=== PATIENT | male | born 1945 | race Caucasian/White ===

== ENCOUNTER 2017-12-18 10:14 | Emergency (ER) | payer OTHER ==
[~2017-12-18] VITALS: Ht 175.3 cm; Wt 89.0 kg
[2017-12-18 10:21] VITALS: BP 144/67; PULSE 69; RESP 18; TEMP 98; O2SAT 98
[2017-12-18] MEDS ORDERED: SIMV20TA PO (10:40)
[2017-12-18] MEDS ORDERED: TAMS0.4C4 (10:40)
[2017-12-18] MEDS ORDERED: LISI-515 PO (10:40)
[2017-12-18] MEDS ORDERED: KETOROLAC TROMETHAMINE 60 MG/2 ML (IM) VIAL IM ONE (11:30)
--- NOTE | 2017-12-18 12:07 | RADRPT ---
EXAM DATE/TIME: 12/18/2017 11:45 [facility] COMPARISON: No previous studies available for comparison. INDICATIONS : Fall, low back and right hip pain. MEDICAL HISTORY : Hypertension. SURGICAL HISTORY : None. ENCOUNTER: Initial ACUITY: 1 week PAIN SCORE: 10/10 LOCATION: low back FINDINGS: There are five non-rib bearing vertebral bodies. The vertebral bodies are in normal alignment withou t evidence of subluxation or scoliosis. Mild degenerative changes lower lumbar spine. Osteopenia. Th e posterior elements are intact without evidence of spondylolysis. The pedicles are intact. No frac ture is identified. Calcifications right upper quadrant. CONCLUSION: 1. Mild degenerative changes. 2. Osteopenia. 3. Calcifications right upper quadrant may be gallstones. Norberto Cox MD on December 18, 2017 at 12:04 Board Certified Radiologist. This report was verified electronically.
--- NOTE | 2017-12-18 12:09 | RADRPT ---
EXAM DATE/TIME: 12/18/2017 11:45 [facility] COMPARISON: No previous studies available for comparison. INDICATIONS : Fall, right hip and low back pain. MEDICAL HISTORY : Hypertension. SURGICAL HISTORY : None. ENCOUNTER: Initial ACUITY: 1 week PAIN SCORE: 10/10 LOCATION: Right posterior hip FINDINGS: Examination of the right hip was performed with AP Pelvis. Mild degenerative changes of each hip. No fracture seen.. The acetabulum is grossly intact. CONCLUSION: Mild degenerative changes. No fracture right hip. Norberto Cox MD on December 18, 2017 at 12:05 Board Certified Radiologist. This report was verified electronically.
[2017-12-18] MEDS ORDERED: ROBA750T PO (12:34)
[2017-12-18] MEDS ORDERED: IBUP1TAB7 PO (12:34)
--- NOTE | 2017-12-18 12:34 | PD ---
HPI Chief Complaint: Back/ Neck Pain or Injury Time Seen by Provider: 10:59 Travel History International Travel<30 days: No Contact w/Intl Traveler<30days: No Traveled to known affect area: No History of Present Illness HPI 72-year-old male here with right low back pain that radiates down the leg times 3 days. He reports he fell into a seated position. No head injury or loss of consciousness. Not anticoagulated. No incontinence, paresthesia or weakness of the lower extremities. Symptom severity is moderate. Worse with ambulating and relieved with rest. PFSH Past Medical History High Cholesterol: Yes Genitourinary: Yes (BPH) Hypertension: Yes Tetanus Vaccination: < 5 Years Influenza Vaccination: No ?: Not Social History Alcohol Use: Yes (RARELY) Tobacco Use: Yes (CIGARS) Substance Use: No Allergies-Medications (Allergen,Severity, Reaction): Coded Allergies: codeine (Verified Allergy, Severe, Anaphylaxis, 12/18/17) metronidazole (Verified Allergy, Severe, Respiratory Failure, 12/18/17) Reported Meds & Prescriptions Reported Meds & Active Scripts Active Robaxin (Methocarbamol) 750 Mg Tab 750 Mg PO QID Ibuprofen 800 Mg Tab 800 Mg PO Q6HR PRN Reported Tamsulosin (Tamsulosin HCl) 0.4 Mg Cap 0.4 Mg HS Simvastatin 20 Mg Tab 20 Mg PO DAILY Lisinopril 20 Mg Tab 20 Mg PO DAILY Review of Systems Except as stated in HPI: all other systems reviewed are Neg General / Constitutional: No: Fever Eyes: No: Visual changes HENT: No: Headaches Cardiovascular: No: Chest Pain or Discomfort Respiratory: No: Shortness of Breath Gastrointestinal: No: Abdominal Pain Genitourinary: No: Dysuria Skin: No Rash Neurologic: No: Weakness Psychiatric: No: Depression Physical Exam Narrative GENERAL: Alert and well-appearing 72-year-old male SKIN: Warm and dry. HEAD: Normocephalic. Atraumatic EYES: No scleral icterus. No injection or drainage. NECK: Supple, trachea midline. No point spine tenderness CARDIOVASCULAR: Regular rate and rhythm without murmurs, gallops, or rubs. No chest wall tenderness RESPIRATORY: Breath sounds equal bilaterally. No accessory muscle use. GASTROINTESTINAL: Abdomen soft, non-tender, nondistended. MUSCULOSKELETAL: No cyanosis, or edema. +TTP R lateral hip. Patient can flex and externally rotate the hip. 2+ distal pulses. Normal sensation. Brisk cap refill. Normal strength and sensation in lower extremities. BACK: +TTP lumbar spine .no step-off deformity. No CVA tenderness. Data Data Last Documented VS Vital Signs Date Time Temp Pulse Resp B/P (MAP) Pulse Ox O2 Delivery O2 Flow Rate FiO2 12/18/17 10:21 98.0 69 18 144/67 (92) 98 Orders Orders Hip, Uni(Ap&Lat) W Ap Pelvis (12/18/17 ) Spine, Lumbar Comp W/Obliq (12/18/17 ) Ketorolac Inj (Toradol Inj) (12/18/17 11:30) MDM Medical Decision Making Medical Screen Exam Complete: Yes Emergency Medical Condition: Yes Differential Diagnosis Sciatica, hip fracture, pelvic fracture, lumbar strain Narrative Course 72-year-old male here with right low back pain that radiates down the leg. X- rays are negative for fracture. He has a normal neurologic exam. He'll be treated for sciatica Diagnosis Primary Impression: Sciatica Qualified Codes: M54.31 - Sciatica, right side Referrals: Primary Care Physician Additional Instructions: Medication as directed. Follow-up the primary doctor. Return if he developed new or worsening symptoms. Scripts Methocarbamol (Robaxin) 750 Mg Tab 750 MG PO QID for Muscle Spasm, #12 TAB 0 Refills Prov: Joie Cancino 12/18/17 Ibuprofen (Ibuprofen) 800 Mg Tab 800 MG PO Q6HR Y for PAIN, #40 TAB 0 Refills Prov: Joie Cancino 12/18/17 Disposition: 01 DISCHARGE HOME Condition: Stable Joie Cancino Dec 18, 2017 12:34
== END 2017-12-18 12:42 | disposition home or self-care (01) ==
LOC: PHEFT 10:14
DX: M54.31 Sciatica, right side (principal); E78.00 Pure hypercholesterolemia, unspecified; I10 Essential (primary) hypertension; N40.0 Benign prostatic hyperplasia without lower urinary tract symptoms; Z72.0 Tobacco use
CPT/HCPCS: 72110; 73502; 96372; 99284; J1885